=== PATIENT | male | born 1965 | race African-American/Black ===

== ENCOUNTER 2016-10-26 03:22 | Emergency (ER) | payer SELFPAY ==
[~2016-10-26] VITALS: Ht 177.8 cm; Wt 78.0 kg
[2016-10-26 03:28] VITALS: BP 111/72; PULSE 49; RESP 17; TEMP 98.2; O2SAT 94
--- NOTE | 2016-10-26 04:22 | PD ---
HPI Chief Complaint: Alcohol/Drug Intoxication Time Seen by Provider: 04:22 Travel History International Travel<30 days: No Contact w/Intl Traveler<30days: No Traveled to known affect area: No History of Present Illness HPI 50-year-old male presents to emergency department under a Rodriguez act for evaluation. Patient was found lying in the Road, seemingly intoxicated. He was brought here for further evaluation. Patient is arousable, states he has been drinking alcohol. Has abrasion to his face and states it was from a fall. Says he is homeless. He offers no other helpful information. [facility] Past Medical History Medical History: Unable to Obtain Past Surgical History Surgical History: Unable to Obtain Social History Alcohol Use: Yes Tobacco Use: No Substance Use: No Allergies-Medications (Allergen,Severity, Reaction): Coded Allergies: No Known Allergies (Unverified , 10/26/16) Reported Meds & Prescriptions Reported Meds & Active Scripts Active Active Prescriptions or Reported Medications Unobtainable Review of Systems ROS Limitations: Intoxication Except as stated in HPI: all other systems reviewed are Neg Physical Exam Exam Limitations: Intoxication Narrative GENERAL: Well-nourished male patient, seemingly intoxicated, in no acute distress SKIN: Focused skin assessment warm/dry. Abrasion to the right cheek and right knee. HEAD: Normocephalic. EYES: Pupils equal and round. No scleral icterus. No injection or drainage. ENT: No nasal bleeding or discharge. Mucous membranes pink and moist. NECK: Trachea midline. No JVD. CARDIOVASCULAR: Regular rate and rhythm. No murmur appreciated. RESPIRATORY: No accessory muscle use. Clear to auscultation. Breath sounds equal bilaterally. GASTROINTESTINAL: Abdomen soft, non-tender, nondistended. Hepatic and splenic margins not palpable. MUSCULOSKELETAL: No obvious deformities. No clubbing. No cyanosis. No edema. NEUROLOGICAL: Lethargic, arousable. No obvious cranial nerve deficits. Motor grossly within normal limits. Slurred speech. Data Data Last Documented VS Vital Signs Date Time Temp Pulse Resp B/P Pulse Ox O2 Delivery O2 Flow Rate FiO2 10/26/16 03:28 98.2 49 17 111/[address] Brain W/O Iv Contrast(Rout) (10/26/16 ) [facility] Medical Decision Making Medical Screen Exam Complete: Yes Emergency Medical Condition: Yes Medical Record Reviewed: Yes Differential Diagnosis Intoxication versus polysubstance abuse versus mood disorder versus minor head injury versus intracranial hemorrhage Narrative Course 50-year-old male presents to the emergency department under a Rodriguez act. Patient is arousable but with slurred speech. He does follow simple commands. He has an abrasion to his face and right knee. CT imaging of the brain is ordered. Patient will be monitored until he is clinically sober at which time he'll be discharged. Diagnosis Primary Impression: Alcohol intoxication Qualified Code: F10.120 - Alcohol intoxication, uncomplicated Additional Impression: Facial abrasion Qualified Code: S00.81XA - Facial abrasion, initial encounter Scripts Unable to Obtain Active Prescriptions or Reported Meds Condition: Stable Gogo Francisco October 26, 2016 04:22
--- NOTE | 2016-10-26 06:10 | RADRPT ---
EXAM DATE/TIME: 10/26/2016 05:24 [place] COMPARISON: No previous studies available for comparison. INDICATIONS : Syncopal episode. RADIATION DOSE: 36.44 CTDIvol (mGy) MEDICAL HISTORY : None SURGICAL HISTORY : None. ENCOUNTER: Initial ACUITY: 1 day PAIN SCALE: Non-responsive LOCATION: cranial TECHNIQUE: Multiple contiguous axial images were obtained of the head. Using automated exposure control and adj ustment of the mA and/or kV according to patient size, radiation dose was kept as low as reasonably a chievable to obtain optimal diagnostic quality images. FINDINGS: CEREBRUM: The ventricles are normal for age. No evidence of midline shift, mass lesion, hemorrhage or acute in farction. No extra-axial fluid collections are seen. POSTERIOR FOSSA: The cerebellum and brainstem are intact. The 4th ventricle is midline. The cerebellopontine angle i s unremarkable. EXTRACRANIAL: The visualized portion of the orbits is intact. SKULL: The calvaria is intact. No evidence of skull fracture. CONCLUSION: Normal examination. Sam Kelley MD on October 26, 2016 at 6:08 Board Certified Radiologist. This report was verified electronically.
[2016-10-26 13:04] VITALS: BP 100/58; PULSE 60; RESP 12; O2SAT 97
[2016-10-26 14:35] VITALS: BP 100/68
== END 2016-10-26 14:46 | disposition home or self-care (01) ==
LOC: NEPD 03:22
DX: F10.120 Alcohol abuse with intoxication, uncomplicated (principal); S00.81XA Abrasion of other part of head, initial encounter; W19.XXXA Unspecified fall, initial encounter; Z59.0 Homelessness
CPT/HCPCS: 70450